=== PATIENT | female | born 1955 | race Caucasian/White ===

== ENCOUNTER → 2017-05-16 | Outpatient (CLI) | payer BC ==
[2014-08-22 09:31] VITALS: BP 127/69
--- NOTE | 2017-05-16 09:55 | MRI ---
HISTORY: Garcia's neuroma. Study: MRI left foot without contrast. Comparison: None available. Technique: Multiplanar/multi sequence imaging of the left foot without contrast. Findings: No obvious lesion to suggest a Garcia's neuroma. The visualized muscles, tendons, and neurovascular structures appear normal. No acute cortical disruption or dislocation can be identified. No signifi cant soft tissue swelling or injury can be seen. IMPRESSION: No MRI findings to suggest a Garcia's neuroma. Reported By:
== END ==
LOC: RAD 08:41
PROVIDERS: ATTEND Specialist
DX: G57.62 Lesion of plantar nerve, left lower limb (principal)
CPT/HCPCS: 73721

== ENCOUNTER → 2017-05-20 | Outpatient (CLI) | payer BC ==
[2014-08-22 09:31] VITALS: BP 127/69
[2017-05-20 15:10] LABS: BASOPHILS % (AUTO) 0.8 % (0.2-1.0); EOSINOPHILS # (AUTO) 0.2 x10^3/uL (0.0-0.2); EOSINOPHILS % (AUTO) 5.8 % (0.9-2.9); HEMATOCRIT 41.1 % (36.0-47.0); HEMOGLOBIN 14.2 g/dL (12.0-16.0); LYMPHOCYTES # (AUTO) 1.1 X10^3/uL (1.3-2.9); LYMPHOCYTES % (AUTO) 25.1 % (21.0-51.0); MEAN CORPUSCULAR HGB CONC 34.7 g/dL (33.0-35.0); MEAN CORPUSCULAR VOLUME 92.4 fL (80.0-100.0); MEAN PLATELET VOLUME 8.2 fL (7.4-11.0); MONOCYTES # (AUTO) 0.3 x10^3/uL (0.3-0.8); MONOCYTES % (AUTO) 7.6 % (0.0-13.0); NEUTROPHILS # (AUTO) 2.6 x10^3/uL (2.2-4.8); NEUTROPHILS % (AUTO) 60.7 % (42.0-75.0); PLATELET COUNT 240 X10^3/uL (150.0-450.0); RED BLOOD COUNT 4.45 X10^6/uL (3.5-5.4); WHITE BLOOD COUNT 4.3 X10^3/uL (3.6-10.0)
[2017-05-20 15:26] LABS: ALANINE AMINOTRANSFERASE 30 Units/L (12-78); ALBUMIN 3.8 g/dL (3.4-5.0); ALKALINE PHOSPHATASE 57 Units/L (46-116); ASPARTATE AMINO TRANSFERASE 24 Units/L (15-37); BLOOD UREA NITROGEN 23 mg/dL (7-18); CALCIUM 8.7 mg/dL (8.5-10.1); CARBON DIOXIDE 27.7 mmol/L (21-32); CHLORIDE 102 mmol/L (98-107); CREATININE 0.82 mg/dL (0.55-1.02); GLUCOSE 90 mg/dL (65-99); SODIUM 138 mmol/L (136-145); TOTAL PROTEIN 7.4 g/dL (6.4-8.2); eGFR BLACK RACES > 60 (>60); eGFR NON BLACK RACES > 60 (>60)
[2017-05-20 16:26] LABS: ERYTHROCYTE SEDIMENTATION RATE 2 MM/HOUR (0-20)
== END ==
LOC: LAB 14:42
PROVIDERS: ATTEND Nurse Practitioner Family
DX: Z79.899 Other long term (current) drug therapy (principal); M06.09 Rheumatoid arthritis without rheumatoid factor, multiple sites
CPT/HCPCS: 36415; 80053; 85025; 85652; 86140

== ENCOUNTER → 2017-06-03 | Outpatient (CLI) | payer BC ==
[2014-08-22 09:31] VITALS: BP 127/69
--- NOTE | 2017-06-06 08:42 | MRI ---
HISTORY: Back pain, left sciatica Study: MRI lumbar spine without contrast Comparison: None Technique: Multiplanar multi-sequence MRI of the lumbar spine was obtained. Sagittal T1, sagittal T 2, and stir weighted images, axial T1, and axial T2 images were obtained. Findings: There is mild retrolisthesis L5 on S1 . The lumbar spine demonstrates otherwise normal alignment wit h the expected signal characteristics of the bone marrow. With the exception of mild degenerative en dplate changes at L4-5. The conus of the cord terminates normally. T12 -- L1: No evidence for compressive disc disease. The neural foramina are patent. The joints are normal. L1 -- L2: No evidence for compressive disc disease. The neural foramina are patent. The joints are n ormal. L2 -- L3: No evidence for compressive disc disease. The neural foramina are patent. Bilateral facet arthropathy is present. L3 -- L4: Mild circumferential disk bulging effaces the thecal sac and contributes along with ligame ntous hypertrophy, facet arthropathy, and pedicular shortening to a moderate spinal stenosis with mo derate lateral recess and foraminal narrowing bilaterally. L4 -- L5: Diffuse concentric disk bulging effaces the thecal sac and contributes along with pedicula r shortening to mild lateral recess and foraminal narrowing bilaterally more prominent on the right than the left. L5 -- S1: There is disc degeneration with slight retrolisthesis L5 on S1. The retrolisthesis and bro ad-based disc bulging contribute to significant lateral recess and foraminal narrowing bilaterally. IMPRESSION: As above Reported By:
== END | disposition home or self-care (01) | DRG 552 ==
LOC: RAD 08:39
PROVIDERS: ATTEND Specialist
DX: M53.86 Other specified dorsopathies, lumbar region (principal); M54.32 Sciatica, left side
CPT/HCPCS: 72148

== ENCOUNTER → 2017-09-29 | Outpatient (CLI) | payer BC ==
[2014-08-22 09:31] VITALS: BP 127/69
[2017-09-29 08:46] LABS: EOSINOPHILS # (AUTO) 0.3 x10^3/uL (0.0-0.2); EOSINOPHILS % (AUTO) 6.2 % (0.9-2.9); HEMATOCRIT 43.9 % (36.0-47.0); LYMPHOCYTES % (AUTO) 22.3 % (21.0-51.0); MEAN CORPUSCULAR HEMOGLOBIN 31.5 pg (27.0-34.0); MEAN CORPUSCULAR HGB CONC 34.1 g/dL (33.0-35.0); MEAN CORPUSCULAR VOLUME 92.3 fL (80.0-100.0); MEAN PLATELET VOLUME 8.1 fL (7.4-11.0); MONOCYTES # (AUTO) 0.4 x10^3/uL (0.3-0.8); MONOCYTES % (AUTO) 9.1 % (0.0-13.0); NEUTROPHILS # (AUTO) 2.7 x10^3/uL (2.2-4.8); NEUTROPHILS % (AUTO) 61.4 % (42.0-75.0); PLATELET COUNT 277 X10^3/uL (150.0-450.0); RED BLOOD COUNT 4.75 X10^6/uL (3.5-5.4); RED CELL DISTRIBUTION WIDTH 15.1 % (11.6-16.5); WHITE BLOOD COUNT 4.3 X10^3/uL (3.6-10.0)
[2017-09-29 09:08] LABS: ALANINE AMINOTRANSFERASE 29 Units/L (12-78); ALBUMIN 3.8 g/dL (3.4-5.0); ALKALINE PHOSPHATASE 75 Units/L (46-116); ASPARTATE AMINO TRANSFERASE 20 Units/L (15-37); BLOOD UREA NITROGEN 19 mg/dL (7-18); CALCIUM 9.1 mg/dL (8.5-10.1); CARBON DIOXIDE 29.6 mmol/L (21-32); CHLORIDE 104 mmol/L (98-107); CREATININE 1.05 mg/dL (0.55-1.02); SODIUM 141 mmol/L (136-145); TOTAL PROTEIN 7.6 g/dL (6.4-8.2); eGFR BLACK RACES > 60 (>60); eGFR NON BLACK RACES 57 (>60)
[2017-09-29 09:39] LABS: ERYTHROCYTE SEDIMENTATION RATE 2 MM/HOUR (0-20)
== END ==
LOC: LAB 07:42
PROVIDERS: ATTEND Internal Medicine Rheumatology
DX: Z79.899 Other long term (current) drug therapy (principal); M06.09 Rheumatoid arthritis without rheumatoid factor, multiple sites
CPT/HCPCS: 36415; 80053; 85025; 85652

== ENCOUNTER → 2018-01-12 | Outpatient (CLI) | payer BC ==
[2017-11-18 11:03] VITALS: BP 138/67
[2018-01-12 08:32] LABS: BASOPHILS # (AUTO) 0.1 X10^3/uL (0.0-0.1); BASOPHILS % (AUTO) 1.2 % (0.2-1.0); EOSINOPHILS # (AUTO) 0.4 x10^3/uL (0.0-0.2); EOSINOPHILS % (AUTO) 8.3 % (0.9-2.9); HEMATOCRIT 42.9 % (36.0-47.0); HEMOGLOBIN 14.8 g/dL (12.0-16.0); LYMPHOCYTES # (AUTO) 1.7 X10^3/uL (1.3-2.9); LYMPHOCYTES % (AUTO) 36.7 % (21.0-51.0); MEAN CORPUSCULAR HEMOGLOBIN 31.8 pg (27.0-34.0); MEAN CORPUSCULAR HGB CONC 34.4 g/dL (33.0-35.0); MEAN CORPUSCULAR VOLUME 92.2 fL (80.0-100.0); MEAN PLATELET VOLUME 7.7 fL (7.4-11.0); MONOCYTES # (AUTO) 0.5 x10^3/uL (0.3-0.8); NEUTROPHILS # (AUTO) 2.1 x10^3/uL (2.2-4.8); NEUTROPHILS % (AUTO) 43.8 % (42.0-75.0); PLATELET COUNT 277 X10^3/uL (150.0-450.0); RED BLOOD COUNT 4.65 X10^6/uL (3.5-5.4); RED CELL DISTRIBUTION WIDTH 13.5 % (11.6-16.5); WHITE BLOOD COUNT 4.7 X10^3/uL (3.6-10.0)
[2018-01-12 08:38] LABS: ALANINE AMINOTRANSFERASE 23 Units/L (12-78); ALBUMIN 3.5 g/dL (3.4-5.0); ALKALINE PHOSPHATASE 74 Units/L (46-116); ASPARTATE AMINO TRANSFERASE 15 Units/L (15-37); BLOOD UREA NITROGEN 14 mg/dL (7-18); CALCIUM 8.7 mg/dL (8.5-10.1); CARBON DIOXIDE 27.6 mmol/L (21-32); CHLORIDE 107 mmol/L (98-107); CREATININE 0.89 mg/dL (0.55-1.02); SODIUM 140 mmol/L (136-145); TOTAL PROTEIN 7.1 g/dL (6.4-8.2); eGFR BLACK RACES > 60 (>60); eGFR NON BLACK RACES > 60 (>60)
[2018-01-12 09:04] LABS: ERYTHROCYTE SEDIMENTATION RATE 2 MM/HOUR (0-20)
== END ==
LOC: SURG1 07:45
PROVIDERS: ATTEND Internal Medicine Rheumatology
DX: Z79.899 Other long term (current) drug therapy (principal); M06.09 Rheumatoid arthritis without rheumatoid factor, multiple sites
CPT/HCPCS: 36415; 80053; 85025; 85652; 86140

== ENCOUNTER 2023-03-17 09:52 | Inpatient (IN) ==
[2023-03-17 11:35] VITALS: BMI 32.4
[2023-03-17] MEDS ORDERED: PROVENTIL NEB TX 0.083% 2.5MG/ 3ML NEB SCH (11:37)
[2023-03-17] MEDS ORDERED: Atrovent NEB TX 0.02% NEB SCH (11:37)
[2023-03-17] MEDS ORDERED: NS 1/2 1,000 ML IV 1,000 ML IV ONE (11:52)
[2023-03-17] MEDS: LEVAQUIN PREMIX IV 750 MG 750 MG/150 ML BAG IV SCH (11:54)
[2023-03-17] MEDS: NS 1/2 1,000 ML IV 1,000 ML IV SCH (11:55)
[2023-03-17] MEDS: SOLU-Medrol 40 MG VIAL IVP SCH ×2 (11:55→21:46)
[2023-03-17] MEDS: ROBITUSSIN DM PO SCH ×4 (11:55→21:46)
[2023-03-17 12:23] LABS: BASOPHILS % (AUTO) 0.2 % (0.2-1.0); EOSINOPHILS # (AUTO) 0.1 x10^3/uL (0.0-0.2); EOSINOPHILS % (AUTO) 0.7 % (0.9-2.9); HEMATOCRIT 35.4 % (36.0-47.0); HEMOGLOBIN 12.2 g/dL (12.0-16.0); LYMPHOCYTES # (AUTO) 0.6 X10^3/uL (1.3-2.9); LYMPHOCYTES % (AUTO) 5.4 % (21.0-51.0); MEAN CORPUSCULAR HEMOGLOBIN 31.8 pg (27.0-34.0); MEAN CORPUSCULAR HGB CONC 34.5 g/dL (33.0-35.0); MEAN PLATELET VOLUME 7.4 fL (7.4-11.0); MONOCYTES # (AUTO) 0.8 x10^3/uL (0.3-0.8); MONOCYTES % (AUTO) 7.8 % (0.0-13.0); NEUTROPHILS # (AUTO) 9.1 x10^3/uL (2.2-4.8); NEUTROPHILS % (AUTO) 85.9 % (42.0-75.0); PLATELET COUNT 394 X10^3/uL (150.0-450.0); RED BLOOD COUNT 3.85 X10^6/uL (3.5-5.4); RED CELL DISTRIBUTION WIDTH 14.3 % (11.6-16.5); WHITE BLOOD COUNT 10.5 X10^3/uL (3.6-10.0)
[2023-03-17 12:32] LABS: ALANINE AMINOTRANSFERASE 33 Units/L (12-78); ALBUMIN 3.3 g/dL (3.4-5.0); ALKALINE PHOSPHATASE 74 Units/L (46-116); ASPARTATE AMINO TRANSFERASE 29 Units/L (15-37); BLOOD UREA NITROGEN 10 mg/dL (7-18); CALCIUM 9.4 mg/dL (8.5-10.1); CARBON DIOXIDE 32.9 mmol/L (21-32); CHLORIDE 98 mmol/L (98-107); COR NA(FOR HYPERGLY) 137 mmol/L (136-145); CREATININE 0.93 mg/dL (0.55-1.02); GLUCOSE 111 mg/dL (65-99); SODIUM 137 mmol/L (136-145); TOTAL PROTEIN 7.7 g/dL (6.4-8.2); eGFR NON BLACK RACES > 60 (>60)
[2023-03-17 12:37] LABS: POTASSIUM 2.7 mmol/L (3.5-5.1)
[2023-03-17] MEDS: ZOFRAN INJ 4 MG VIAL IVP PRN (13:15)
[2023-03-17] MEDS ORDERED: POTASSIUM CHL 40 MEQ/NS 0.45% 500 ML IV PRN (13:42)
[2023-03-17] MEDS ORDERED: MICRO K EXTEN CAP 10 MEQ PO PRN (13:42)
[2023-03-17] MEDS ORDERED: K-RIDER 10 MEQ/NS 100 ML 10 MEQ/100 ML BAG IV PRN (13:42)
[2023-03-17] MEDS ORDERED: POTASSIUM CHLORIDE LIQ 20 MEQ UDC PO PRN (13:42)
[2023-03-17] MEDS ORDERED: KLOR-CON PO PRN (13:42)
[2023-03-17] MEDS ORDERED: POTASSIUM CHL 60 MEQ/NS 0.45% 500 ML IV PRN (13:42)
[2023-03-17] MEDS: K-DUR TAB 20 MEQ PO PRN ×2 (14:06→18:15)
[2023-03-17] MEDS: LOVENOX INJ 40 MG SYR SC SCH (14:09)
[2023-03-17] MEDS ORDERED: DUONEB 0.5 MG/3 MG (3 mL) NEB ONE (16:13)
[2023-03-17] MEDS: DUONEB 0.5 MG/3 MG (3 mL) NEB SCH ×2 (16:39→18:28)
[2023-03-17] MEDS: MAGNESIUM SULFATE 1 GRAM/100 mL PREMIX 1 G/100 ML BAG IV PRN ×2 (18:15→21:52)
[2023-03-17] MEDS ORDERED: PULMICORT NEB TX 0.5 MG NEB ONE (19:59)
[2023-03-17] MEDS: PULMICORT NEB TX 0.5 MG NEB SCH (20:48)
[2023-03-18] MEDS: TUSSIONEX PENNKINETIC SUSP PO PRN (02:26)
[2023-03-18] MEDS: DUONEB 0.5 MG/3 MG (3 mL) NEB SCH ×4 (05:35→17:01)
[2023-03-18 06:08] LABS: BASOPHILS % (AUTO) 0.1 % (0.2-1.0); HEMATOCRIT 32.4 % (36.0-47.0); HEMOGLOBIN 11.3 g/dL (12.0-16.0); LYMPHOCYTES # (AUTO) 0.4 X10^3/uL (1.3-2.9); LYMPHOCYTES % (AUTO) 4.5 % (21.0-51.0); MEAN CORPUSCULAR HEMOGLOBIN 32.2 pg (27.0-34.0); MEAN PLATELET VOLUME 7.4 fL (7.4-11.0); MONOCYTES # (AUTO) 0.4 x10^3/uL (0.3-0.8); MONOCYTES % (AUTO) 3.9 % (0.0-13.0); NEUTROPHILS # (AUTO) 8.4 x10^3/uL (2.2-4.8); NEUTROPHILS % (AUTO) 91.5 % (42.0-75.0); PLATELET COUNT 414 X10^3/uL (150.0-450.0); RED BLOOD COUNT 3.52 X10^6/uL (3.5-5.4); RED CELL DISTRIBUTION WIDTH 14.2 % (11.6-16.5); WHITE BLOOD COUNT 9.1 X10^3/uL (3.6-10.0)
[2023-03-18 06:23] LABS: ALANINE AMINOTRANSFERASE 26 Units/L (12-78); ALBUMIN 2.7 g/dL (3.4-5.0); ALKALINE PHOSPHATASE 64 Units/L (46-116); ASPARTATE AMINO TRANSFERASE 16 Units/L (15-37); BLOOD UREA NITROGEN 9 mg/dL (7-18); CALCIUM 8.5 mg/dL (8.5-10.1); CARBON DIOXIDE 29.9 mmol/L (21-32); CHLORIDE 101 mmol/L (98-107); COR CA(FOR HYPOALB) 9.5 mg/dL (8.5-10.1); COR NA(FOR HYPERGLY) 138 mmol/L (136-145); GLUCOSE 157 mg/dL (65-99); MAGNESIUM 2.6 mg/dL (2.0-2.9); POTASSIUM 3.6 mmol/L (3.5-5.1); SODIUM 137 mmol/L (136-145); eGFR NON BLACK RACES > 60 (>60)
[2023-03-18] MEDS: K-DUR TAB 20 MEQ PO PRN ×4 (06:34→22:18)
[2023-03-18] MEDS: NS 1/2 1,000 ML IV 1,000 ML IV SCH ×2 (06:34→14:37)
[2023-03-18] MEDS ORDERED: NS 1/2 1,000 ML IV 1,000 ML IV ONE ×2 (06:36→12:42)
--- NOTE | 2023-03-18 06:44 | RAD ---
HISTORYPneumoniaSTUDYChest AP portableCOMPARISONNoneFINDINGSHeart size is normal. Heather are normal. Abnormal parenchymal density is present in the right upper lobe suggestive of pneumonia. Follow-up until complete resolution is recommended. Remainder of the lung martinez are clear. No pleural effusions are identified. Bony thorax is unremarkable.IMPRESSIONRight upper lobe infiltrates suggestive of pneumonia. Follow-up until complete resolution is recommended.Electronically signed by: CARYN PONCE (Mar 18, 2023 06:43:18)
[2023-03-18 07:03] LABS: BAND NEUTROPHILS % 2 % (0-10); PLATELET MORPHOLOGY COMMENT NORMAL (NORMAL)
--- NOTE | 2023-03-18 07:40 | RAD ---
HISTORYFollow-up pneumoniaSTUDYChest AP [id number]/27/2023FINDINGSHear t is upper limits normal in size. No congestive heart failure is noted. Heather are normal. Right upper lobe infiltrate is slightly increased when compared to the prior examination and most consistent with slightly worsening pneumonia. Remainder of the lung martinez are clear. No pleural effusions are identified. Bony thorax is unremarkable.IMPRESSIONSlight increase right upper lobe infiltrate consistent with slightly worsening pneumoniaElectronically signed by: CARYN PONCE (Mar 18, 2023 07:39:43)
[2023-03-18] MEDS: PULMICORT NEB TX 0.5 MG NEB SCH ×2 (08:49→20:15)
[2023-03-18] MEDS: LOVENOX INJ 40 MG SYR SC SCH (09:07)
[2023-03-18] MEDS: DIOVAN TAB 160 MG PO SCH (09:08)
[2023-03-18] MEDS: HYDROCHLOROTHIAZIDE 25 MG TAB PO SCH (09:08)
[2023-03-18] MEDS: PROTONIX TAB 40 MG PO SCH (09:08)
[2023-03-18] MEDS: SOLU-Medrol 40 MG VIAL IVP SCH ×2 (09:09→21:09)
[2023-03-18] MEDS: LEVAQUIN PREMIX IV 750 MG 750 MG/150 ML BAG IV SCH (09:09)
[2023-03-18] MEDS: FOLIC ACID TAB 1 MG PO SCH (09:09)
[2023-03-18] MEDS: ROBITUSSIN DM PO SCH ×4 (09:09→21:09)
[2023-03-18] MEDS: TOFACITINIB 11 MG PO SCH (09:10)
[2023-03-18] MEDS ORDERED: FORTAZ or TAZICEF VIAL INJ IVP SCH (10:00)
[2023-03-18] MEDS ORDERED: NS 100 ML IV 100 ML ONE (10:03)
[2023-03-18] MEDS: FORTAZ or TAZICEF VIAL INJ 1 G in NS 100 ML IV 100 ML IV SCH ×3 (10:24→21:08)
--- NOTE | 2023-03-18 11:44 | DR.H&P ---
H&P - History & Physical for Day of: H&P Date: 03/17/23 - Chief Complaint Chief Complaint: COUGH, SHORTNESS OF BREATH - History of Present Illness History of Present Illness: IS A 67 YEAR OLD PATIENT OF OURS. SHE WAS A DIRECT ADMISSION FOR TREATMENT OF PNEUMONIA, FAILED OUTPATIENT TREATMENT. HER SYMPTOMS OF PRODUCTIVE COUGH AND SHORTNESS OF BREATH STARTED ON 03/10/23. SHE HAS TAKEN AUGMENTIN 875-125 BID, MUCINEX, A MEDROL DOSEPACK, AND HAS HAD ROCEPHIN INJECTIONS. SHE DENIES IMPROVEMENT IN SYMPTOMS DESPITE COMPLIANCE WITH MEDICATIONS. ON ADMISSION, HER VITALS WERE 99.9-90-20-97%-157/74. LABS WERE OBTAINED. WBC 10.5, RBC 3.85, HGB 12.2, HCT 35.4, PLT COUNT 394, SODIUM 137, POTASSIUM 2.7, CHLORIDE 98, CARBON DIOXIDE 32.9, BUN 10, CREATININE 0.93, GLUCOSE 111, CALCIUM 9.4, MAGNESIUM 1.9, AST 29, ALT 33, ALK PHOS 74, TOTAL PROTEIN 7.7, ALBUMIN 3.3. A RESPIRATORY VIRAL PANEL WAS SET UP. BLOOD AND SPUTUM CULTURES WERE SET UP. A CHEST XRAY WAS OBTAINED AND REVEALED: Heart size is normal. Heather are normal. Abnormal parenchymal density is present in the right upper lobe suggestive of pneumonia. Follow-up until complete resolution is recommended. Remainder of the lung martinez are clear. No pleural effusions are identified. Bony thorax is unremarkable. SHE WAS STARTED ON 1/2NS AT 75 ML/HR, LEVAQUIN 750MG DAILY, FORTAZ 1G IV Q8H, PULMICORT NEBS BID, DUONEBS Q6H, MUCOMYST NEBS Q6H, LOVENOX 40MG SC DAILY, TUSSIONEX 5ML Q12H PRN, ROBITUSSIN DM 10ML QID, ZOFRAN 4MG IV Q6H PRN, SOLU-MEDROL 60MG IV BID, AND THE POTASSIUM AND MAGNESIUM PROTOCOLS. WE WILL RESUME HER HOME MEDICATIONS OF VALSARTAN, PANTOPRAZOLE, FOLIC ACID, AND HCTZ. OTHERWISE, WE WILL FOLLOW-UP WITH AM LABS AND CHEST XRAY AND CONTINUE TO MONITOR. TIME SPENT ON CLINICAL ASSESSMENT, REVIWING LABS AND IMAGING, DECISION MAKING, AND DOCUMENTATION GREATER THAN 45 MINUTES. - Past Medical History Past Medical History: Arthritis, Hypertension - Past Surgical History Surgical History: Cholecystectomy, Hysterectomy - Family History Family Medical History: Diabetes Mellitus, Hypertension - Social History Does patient currently use any type of tobacco product: No Have you used tobacco products in the last 12 months: No Type of Tobacco Use: None Alcohol Use: None Drug Use: None - Medications Home Medications: No Known Drug Allergies Allergy (Unknown, Unverified 08/09/22 10:59) CONTINUE taking the following medications amoxicillin 875 mg-potassium clavulanate 125 mg tablet 1 tab PO BID 03/17/23 [History] folic acid 1 mg tablet 1 tab PO QDAY 03/17/23 [History] methylprednisolone 4 mg tablets in a dose pack (Methylpred DP) 4 mg PO DIRECTED 03/17/23 [History] pantoprazole 40 mg tablet,delayed release 40 mg PO QDAY 03/17/23 [History] tofacitinib 11 mg tablet,extended release 24 hr (Xeljanz XR) 11 mg PO DAILY 03/17/23 [History] valsartan 320 mg tablet 320 mg PO QDAY 03/17/23 [History] - Review of Systems Constitutional: No Symptoms Reported Eyes: No Symptoms Reported ENT: No Symptoms Reported Respiratory: Cough, SOB with Excertion Cardiovascular: No Symptoms Reported Gastrointestinal: No Symptoms Reported Genitourinary: No Symptoms Reported Musculoskeletal: No Symptoms Reported Skin: No Symptoms Reported Neurological: Weakness - Physical Exam Vital Signs: Temperature 98.3 F Pulse Rate [Left Radial] 79 Pulse Rate 73 Respiratory Rate 20 Blood Pressure [Right Arm] 134/65 Blood Pressure 130/68 O2 Sat by Pulse Oximetry 93 Oriented: Normal Eyes: Normal Ear: Normal Nose: Normal Throat: Normal Respiratory: Rhonchi Throughout, Wheezes Throughout Cardiovascular: Normal : Normal Auscultation: Bowel Sounds: Normal Palpation: Normal Tenderness: Normal Skin: Normal Musculoskeletal: Normal Psychiatric: Normal Mood Description: Calm Affect: Normal Speech Pattern: Clear - Assessment/Plan (1) Pneumonia Qualifiers: Pneumonia type: due to unspecified organism Laterality: right Lung location: upper lobe of lung Qualified Code(s): J18.9 - Pneumonia, unspecified organism Status: Acute Plan: ADMIT, 1/2NS AT 75 ML/HR, LEVAQUIN 750MG DAILY, FORTAZ 1G IV Q8H, PULMICORT NEBS BID, DUONEBS Q6H, MUCOMYST NEBS Q6H, LOVENOX 40MG SC DAILY, TUSSIONEX 5ML Q12H PRN, ROBITUSSIN DM 10ML QID, ZOFRAN 4MG IV Q6H PRN, SOLU- MEDROL 60MG IV BID, AND THE POTASSIUM AND MAGNESIUM PROTOCOLS. RESUME HOME MEDS (2) HTN (hypertension) Qualifiers: Hypertension type: primary hypertension Qualified Code(s): I10 - Essential (primary) hypertension Status: Chronic (3) GERD (gastroesophageal reflux disease) Qualifiers: Esophagitis presence: esophagitis presence not specified Qualified Code(s): K21.9 - Gastro-esophageal reflux disease without esophagitis Status: Chronic - Allergies Allergies/Adverse Reactions: Allergies Allergy/AdvReac Type Severity Reaction Status Date / Time No Known Drug Allergies Allergy Unknown Unverified 08/09/22 10:59
[2023-03-18] MEDS: MUCOMYST (RESPIRATORY USE ONLY) NEB SCH ×2 (13:07→17:02)
[2023-03-19] MEDS: DUONEB 0.5 MG/3 MG (3 mL) NEB SCH ×4 (00:11→17:07)
[2023-03-19] MEDS: MUCOMYST (RESPIRATORY USE ONLY) NEB SCH ×4 (00:11→17:07)
[2023-03-19] MEDS: TUSSIONEX PENNKINETIC SUSP PO PRN (01:05)
--- NOTE | 2023-03-19 06:03 | RAD ---
HISTORYSOBSTUDYCHEST, 1 VIEWCOMPARISONApril 2022TECHNIQUEPortable chest radiographFINDINGSStable patchy infiltrates primarily affecting the right upper lobe. Left lung remains predominantly clear. No accumulating pleural fluid collections, free air or pneumothorax. Stable size and morphology of the cardiac silhouette.IMPRESSIONUnresolved patchy infiltrates compatible with pneumonia primarily affecting the right upper lobe.Electronically signed by: BEBETO MO (Mar 19, 2023 06:02:16)
[2023-03-19] MEDS: FORTAZ or TAZICEF VIAL INJ 1 G in NS 100 ML IV 100 ML IV SCH ×3 (06:13→21:19)
[2023-03-19 06:15] LABS: BASOPHILS % (AUTO) 0.1 % (0.2-1.0); HEMATOCRIT 34.1 % (36.0-47.0); HEMOGLOBIN 11.6 g/dL (12.0-16.0); LYMPHOCYTES # (AUTO) 0.5 X10^3/uL (1.3-2.9); LYMPHOCYTES % (AUTO) 4.8 % (21.0-51.0); MEAN CORPUSCULAR HEMOGLOBIN 31.4 pg (27.0-34.0); MEAN CORPUSCULAR HGB CONC 33.9 g/dL (33.0-35.0); MEAN CORPUSCULAR VOLUME 92.5 fL (80.0-100.0); MEAN PLATELET VOLUME 7.5 fL (7.4-11.0); MONOCYTES # (AUTO) 0.8 x10^3/uL (0.3-0.8); NEUTROPHILS # (AUTO) 10.1 x10^3/uL (2.2-4.8); NEUTROPHILS % (AUTO) 88.1 % (42.0-75.0); PLATELET COUNT 415 X10^3/uL (150.0-450.0); RED BLOOD COUNT 3.69 X10^6/uL (3.5-5.4); RED CELL DISTRIBUTION WIDTH 14.5 % (11.6-16.5); WHITE BLOOD COUNT 11.5 X10^3/uL (3.6-10.0)
[2023-03-19] MEDS: NS 1/2 1,000 ML IV 1,000 ML IV SCH ×2 (06:15→17:07)
[2023-03-19 06:38] LABS: ALANINE AMINOTRANSFERASE 24 Units/L (12-78); ALBUMIN 2.7 g/dL (3.4-5.0); ALKALINE PHOSPHATASE 72 Units/L (46-116); ASPARTATE AMINO TRANSFERASE 16 Units/L (15-37); BLOOD UREA NITROGEN 12 mg/dL (7-18); CALCIUM 8.7 mg/dL (8.5-10.1); CARBON DIOXIDE 30.2 mmol/L (21-32); CHLORIDE 103 mmol/L (98-107); COR CA(FOR HYPOALB) 9.7 mg/dL (8.5-10.1); COR NA(FOR HYPERGLY) 140 mmol/L (136-145); CREATININE 0.73 mg/dL (0.55-1.02); GLUCOSE 141 mg/dL (65-99); MAGNESIUM 2.4 mg/dL (2.0-2.9); POTASSIUM 3.9 mmol/L (3.5-5.1); SODIUM 139 mmol/L (136-145); TOTAL PROTEIN 6.7 g/dL (6.4-8.2); eGFR NON BLACK RACES > 60 (>60)
[2023-03-19] MEDS: PULMICORT NEB TX 0.5 MG NEB SCH ×2 (08:16→21:24)
[2023-03-19] MEDS: LEVAQUIN PREMIX IV 750 MG 750 MG/150 ML BAG IV SCH (08:54)
[2023-03-19] MEDS: LOVENOX INJ 40 MG SYR SC SCH (08:54)
[2023-03-19] MEDS: SOLU-Medrol 40 MG VIAL IVP SCH (08:54)
[2023-03-19] MEDS: ROBITUSSIN DM PO SCH ×4 (08:55→21:19)
[2023-03-19] MEDS: PROTONIX TAB 40 MG PO SCH (08:55)
[2023-03-19] MEDS: FOLIC ACID TAB 1 MG PO SCH (08:55)
[2023-03-19] MEDS: HYDROCHLOROTHIAZIDE 25 MG TAB PO SCH (08:55)
[2023-03-19] MEDS: DIOVAN TAB 160 MG PO SCH (08:55)
[2023-03-19] MEDS: TOFACITINIB 11 MG PO SCH ×2 (09:08→10:55)
--- NOTE | 2023-03-19 11:48 | PCM.PROG ---
Progress Note Progress Note for Day of Date of Exam: 03/19/23 Subjective Subjective: PT IS A 67 YEAR OLD PATIENT ADMITTED FOR PNEUMONIA AFTER FAILING OUTPATIENT TREATMENT. THIS MORNING SHE REPORTS SOME IMPROVEMENT IN HER SYMPTOMS. NO ACUTE EVENTS OVERNIGHT. LABS/IMAGING WERE OBTAINED. WBC 11.5, HGB 11.6, PLT 415, NA 139, 3.9, CREATININE 0.73, GLUCOSE 141. A RESPIRATORY VIRAL PANEL NEGATIVE. BLOOD AND SPUTUM CULTURES PENDING. A CHEST XRAY WAS OBTAINED AND REVEALED: Unresolved patchy infiltrates compatible with pneumonia primarily affecting the right upper lobe. SHE IS CURRENTLY RECEIVING IVF 1/2NS AT 75 ML/HR, LEVAQUIN 750MG DAILY, FORTAZ 1G IV Q8H, PULMICORT NEBS BID, DUONEBS Q6H, MUCOMYST NEBS Q6H, LOVENOX 40MG SC DAILY, TUSSIONEX 5ML Q12H PRN, ROBITUSSIN DM 10ML QID, ZOFRAN 4MG IV Q6H PRN, SOLU-MEDROL 60MG IV BID, AND THE POTASSIUM AND MAGNESIUM PROTOCOLS. HER HOME MEDICATIONS OF VALSARTAN, PANTOPRAZOLE, FOLIC ACID, AND HCTZ. OTHERWISE, WILL CONTINUE WITH CURRENT TREATMENT PLAN. FOLLOW-UP WITH AM LABS AND CHEST XRAY AND CONTINUE TO MONITOR. Past Medical Family Social History Allergies: Allergies No Known Drug Allergies Allergy (Unknown, Unverified 08/09/22 10:59) Onset Date: 08/09/2022 Review of Systems ROS: No change since H&P Vital Signs and I&O's Vital Signs: Temperature 97.8 F Pulse Rate [Left Radial] 74 Pulse Rate 80 Respiratory Rate 18 Blood Pressure [Right Arm] 141/63 Blood Pressure 130/68 O2 Sat by Pulse Oximetry 93 Intake and Output: Intake & Output 03/16/23 03/17/23 03/18/23 03/19/23 23:59 23:59 23:59 23:59 Intake Total 565 / 565 2874 / 2874 0 / 0 Balance 565 / 565 2874 / 2874 0 / 0 Physical Exam Oriented: Normal Eyes: Normal Ear: Normal Nose: Normal Throat: Normal Respiratory: Rhonchi Cardiovascular: Normal : Normal Auscultation: Bowel Sounds: Normal Tenderness: Normal Skin: Normal Musculoskeletal: Normal Psychiatric: Normal Mood Description: Calm Affect: Normal Speech Pattern: Clear and Appropriate Laboratory and Diagnostics Result Diagrams: 03/19/23 05:05 03/19/23 05:05 Labs: 03/17/23 12:08 Blood Blood Culture - Preliminary 03/17/23 11:52 Blood Blood Culture - Preliminary 03/17/23 13:05 Sputum - Expectorated Sputum Sputum Culture - Final 03/17/23 13:05 Sputum - Expectorated Sputum - Final Laboratory WBC 11.5 X10^3/uL (3.6-10.0) H 03/19/23 05:05 RBC 3.69 X10^6/uL (3.5-5.4) 03/19/23 05:05 Hgb 11.6 g/dL (12.0-16.0) L 03/19/23 05:05 Hct 34.1 % (36.0-47.0) L 03/19/23 05:05 MCV 92.5 fL (80.0-100.0) 03/19/23 05:05 MCH 31.4 pg (27.0-34.0) 03/19/23 05:05 MCHC 33.9 g/dL (33.0-35.0) 03/19/23 05:05 RDW 14.5 % (11.6-16.5) 03/19/23 05:05 Plt Count 415 X10^3/uL (150.0-450.0) 03/19/23 05:05 Plt Count Comment Adequate (ADEQUATE) 03/18/23 05:07 MPV 7.5 fL (7.4-11.0) 03/19/23 05:05 Neut % (Auto) 88.1 % (42.0-75.0) H 03/19/23 05:05 Lymph % (Auto) 4.8 % (21.0-51.0) L 03/19/23 05:05 [place] % (Auto) 7.0 % (0.0-13.0) 03/19/23 05:05 Eos % (Auto) 0.0 % (0.9-2.9) L 03/19/23 05:05 Baso % (Auto) 0.1 % (0.2-1.0) L 03/19/23 05:05 Neut # (Auto) 10.1 x10^3/uL (2.2-4.8) H 03/19/23 05:05 Lymph # (Auto) 0.5 X10^3/uL (1.3-2.9) L 03/19/23 05:05 [place] # (Auto) 0.8 x10^3/uL (0.3-0.8) 03/19/23 05:05 Eos # (Auto) 0.0 x10^3/uL (0.0-0.2) 03/19/23 05:05 Baso # (Auto) 0.0 X10^3/uL (0.0-0.1) 03/19/23 05:05 Absolute Nucleated RBC 0.0 /100WBC 03/19/23 05:05 Total Counted 100 03/18/23 05:07 Neutrophils % (Manual) 92 % (39-76) H 03/18/23 05:07 Band Neutrophils % 2 % (0-10) 03/18/23 05:07 Lymphocytes % (Manual) 6 % (13-43) L 03/18/23 05:07 Plt Morphology Comment Normal (NORMAL) 03/18/23 05:07 RBC Morphology Normal (NORMAL) 03/18/23 05:07 Sodium 139 mmol/L (136-145) 03/19/23 05:05 Corrected Sodium 140 mmol/L (136-145) 03/19/23 05:05 Potassium 3.9 mmol/L (3.5-5.1) 03/19/23 05:05 Chloride 103 mmol/L (98-107) 03/19/23 05:05 Carbon Dioxide 30.2 mmol/L (21-32) 03/19/23 05:05 BUN 12 mg/dL (7-18) 03/19/23 05:05 Creatinine 0.73 mg/dL (0.55-1.02) 03/19/23 05:05 Est GFR (MDRD) Af Amer > 60 (>60) 03/19/23 05:05 Est GFR (MDRD) Non-Af > 60 (>60) 03/19/23 05:05 Glucose 141 mg/dL (65-99) H 03/19/23 05:05 Calcium 8.7 mg/dL (8.5-10.1) 03/19/23 05:05 Corrected Calcium 9.7 mg/dL (8.5-10.1) 03/19/23 05:05 Magnesium 2.4 mg/dL (2.0-2.9) 03/19/23 05:05 Total Bilirubin 0.20 mg/dL (0.2-1.0) 03/19/23 05:05 AST 16 Units/L (15-37) 03/19/23 05:05 ALT 24 Units/L (12-78) 03/19/23 05:05 Alkaline Phosphatase 72 Units/L (46-116) 03/19/23 05:05 Total Protein 6.7 g/dL (6.4-8.2) 03/19/23 05:05 Albumin 2.7 g/dL (3.4-5.0) L 03/19/23 05:05 Globulin 4.0 g/dL (2.5-4.5) 03/19/23 05:05 Albumin/Globulin Ratio 0.7 Ratio (1.1-2.1) L 03/19/23 05:05 Resp Viral Panel (PCR) See scanned report 03/17/23 12:15 Plan (1) Pneumonia: Status: Acute Qualifiers: Pneumonia type: due to unspecified organism Laterality: right Lung lo cation: upper lobe of lung Qualified Code(s): J18.9 - Pneumonia, unspecified organism Plan: ADMIT, 1/2NS AT 75 ML/HR, LEVAQUIN 750MG DAILY, FORTAZ 1G IV Q8H, PULMICORT NEBS BID, DUONEBS Q6H, MUCOMYST NEBS Q6H, LOVENOX 40MG SC DAILY, TUSSIONEX 5ML Q12H PRN, ROBITUSSIN DM 10ML QID, ZOFRAN 4MG IV Q6H PRN, SOLU- MEDROL 60MG IV BID, AND THE POTASSIUM AND MAGNESIUM PROTOCOLS. RESUME HOME MEDS (2) HTN (hypertension): Status: Chronic Qualifiers: Hypertension type: primary hypertension Qualified Code(s): I10 - Essential (primary) hypertension (3) GERD (gastroesophageal reflux disease): Status: Chronic Qualifiers: Esophagitis presence: esophagitis presence not specified Qualified Code(s): K21.9 - Gastro-esophageal reflux disease without esophagitis
[2023-03-19] MEDS ORDERED: NS 1/2 1,000 ML IV 1,000 ML IV ONE (17:04)
[2023-03-20] MEDS: MUCOMYST (RESPIRATORY USE ONLY) NEB SCH ×4 (00:09→17:25)
[2023-03-20] MEDS: DUONEB 0.5 MG/3 MG (3 mL) NEB SCH ×4 (00:09→17:25)
[2023-03-20] MEDS ORDERED: NS 1/2 1,000 ML IV 1,000 ML IV ONE ×2 (00:13→21:34)
[2023-03-20] MEDS: NS 1/2 1,000 ML IV 1,000 ML IV SCH ×4 (05:39→23:38)
[2023-03-20] MEDS: FORTAZ or TAZICEF VIAL INJ 1 G in NS 100 ML IV 100 ML IV SCH ×3 (05:39→21:13)
--- NOTE | 2023-03-20 06:05 | RAD ---
HISTORYSOBSTUDYCHEST, 1 VIEWCOMPARISONApril 29TECHNIQUEPortable chestFINDINGSMarginally improved but unresolved patchy right upper lobe predominant infiltrates in keeping with pneumonia. The remainder of the lungs are clear. The heart size is stable. There is no pleural fluid collection.IMPRESSIONMarginally improved but unresolved patchy right upper lobe predominant infiltrates compatible with pneumonia.Electronically signed by: BEBETO MO (Mar 20, 2023 06:04:12)
[2023-03-20 06:31] LABS: BASOPHILS % (AUTO) 0.3 % (0.2-1.0); EOSINOPHILS # (AUTO) 0.1 x10^3/uL (0.0-0.2); EOSINOPHILS % (AUTO) 0.5 % (0.9-2.9); HEMATOCRIT 34.5 % (36.0-47.0); HEMOGLOBIN 11.6 g/dL (12.0-16.0); LYMPHOCYTES # (AUTO) 1.1 X10^3/uL (1.3-2.9); LYMPHOCYTES % (AUTO) 10.2 % (21.0-51.0); MEAN CORPUSCULAR HEMOGLOBIN 31.1 pg (27.0-34.0); MEAN CORPUSCULAR HGB CONC 33.7 g/dL (33.0-35.0); MEAN CORPUSCULAR VOLUME 92.1 fL (80.0-100.0); MEAN PLATELET VOLUME 7.1 fL (7.4-11.0); MONOCYTES # (AUTO) 0.8 x10^3/uL (0.3-0.8); MONOCYTES % (AUTO) 7.2 % (0.0-13.0); NEUTROPHILS # (AUTO) 9.2 x10^3/uL (2.2-4.8); NEUTROPHILS % (AUTO) 81.8 % (42.0-75.0); PLATELET COUNT 472 X10^3/uL (150.0-450.0); RED BLOOD COUNT 3.75 X10^6/uL (3.5-5.4); RED CELL DISTRIBUTION WIDTH 14.7 % (11.6-16.5); WHITE BLOOD COUNT 11.2 X10^3/uL (3.6-10.0)
[2023-03-20 06:36] LABS: ALANINE AMINOTRANSFERASE 23 Units/L (12-78); ALBUMIN 2.5 g/dL (3.4-5.0); ALKALINE PHOSPHATASE 74 Units/L (46-116); ASPARTATE AMINO TRANSFERASE 19 Units/L (15-37); BLOOD UREA NITROGEN 16 mg/dL (7-18); CALCIUM 8.5 mg/dL (8.5-10.1); CARBON DIOXIDE 30.6 mmol/L (21-32); CHLORIDE 102 mmol/L (98-107); COR CA(FOR HYPOALB) 9.7 mg/dL (8.5-10.1); GLUCOSE 99 mg/dL (65-99); POTASSIUM 3.4 mmol/L (3.5-5.1); SODIUM 139 mmol/L (136-145); TOTAL PROTEIN 6.2 g/dL (6.4-8.2); eGFR NON BLACK RACES > 60 (>60)
[2023-03-20 07:06] LABS: BAND NEUTROPHILS % 2 % (0-10)
[2023-03-20 07:07] LABS: METAMYELOCYTES % 2; PLATELET MORPHOLOGY COMMENT NORMAL (NORMAL)
[2023-03-20] MEDS: PULMICORT NEB TX 0.5 MG NEB SCH ×2 (08:21→21:00)
[2023-03-20] MEDS: HYDROCHLOROTHIAZIDE 25 MG TAB PO SCH (09:05)
[2023-03-20] MEDS: ROBITUSSIN DM PO SCH ×4 (09:05→21:13)
[2023-03-20] MEDS: LOVENOX INJ 40 MG SYR SC SCH (09:05)
[2023-03-20] MEDS: LEVAQUIN PREMIX IV 750 MG 750 MG/150 ML BAG IV SCH (09:05)
[2023-03-20] MEDS: TOFACITINIB 11 MG PO SCH (09:06)
[2023-03-20] MEDS: FOLIC ACID TAB 1 MG PO SCH (09:06)
[2023-03-20] MEDS: PROTONIX TAB 40 MG PO SCH (09:06)
[2023-03-20] MEDS: DIOVAN TAB 160 MG PO SCH (09:16)
[2023-03-20] MEDS: K-DUR TAB 20 MEQ PO PRN ×2 (09:46→16:15)
--- NOTE | 2023-03-20 11:05 | PCM.PROG ---
Progress Note Progress Note for Day of Date of Exam: 03/20/23 Subjective Subjective: PT IS A 67 YEAR OLD PATIENT ADMITTED FOR PNEUMONIA AFTER FAILING OUTPATIENT TREATMENT. PT RESTING IN BED THIS MORNING. SHE DOES FEEL SOME IMPROVEMENT IN HER BREATHING AND COUGH. NO ACUTE EVENTS OVERNIGHT. LABS/IMAGING WERE OBTAINED. WBC 11.2, HGB 11.6, PLT 472, NA 139, 3.4, CREATININE 0.80, GLUCOSE 99. A RESPIRATORY VIRAL PANEL NEGATIVE. BLOOD AND SPUTUM CULTURES PENDING. A CHEST XRAY WAS OBTAINED AND REVEALED: Marginally improved but unresolved patchy right upper lobe predominant infiltrates compatible with pneumonia. SHE IS CURRENTLY RECEIVING IVF 1/2NS AT 75 ML/HR, LEVAQUIN 750MG DA JONO, FORTAZ 1G IV Q8H, PULMICORT NEBS BID, DUONEBS Q6H, MUCOMYST NEBS Q6H, LOVENOX 40MG SC DAILY, TUSSIONEX 5ML Q12H PRN, ROBITUSSIN DM 10ML QID, ZOFRAN 4MG IV Q6H PRN, SOLU-MEDROL 60MG IV BID, AND THE POTASSIUM AND MAGNESIUM PROTOCOLS. HER HOME MEDICATIONS OF VALSARTAN, PANTOPRAZOLE, FOLIC ACID, AND HCTZ. WE WILL CONTINUE WITH THE CURRENT TREATMENT PLAN. FOLLOW-UP WITH AM LABS AND CHEST XRAY AND CONTINUE TO MONITOR. Past Medical Family Social History Allergies: Allergies No Known Drug Allergies Allergy (Unknown, Unverified 08/09/22 10:59) Onset Date: 08/09/2022 Review of Systems ROS changes noted: SEE HPI Vital Signs and I&O's Vital Signs: Temperature 97.8 F Pulse Rate [Left Radial] 78 Pulse Rate 71 Respiratory Rate 20 Blood Pressure [Right Arm] 156/90 Blood Pressure 130/68 O2 Sat by Pulse Oximetry 97 Intake and Output: Intake & Output 03/17/23 03/18/23 03/19/23 03/20/23 23:59 23:59 23:59 23:59 Intake Total 565 / 565 2874 / 2874 1634 / 1634 100 / 100 Balance 565 / 565 2874 / 2874 1634 / 1634 100 / 100 Physical Exam Oriented: Normal Eyes: Normal Ear: Normal Nose: Normal Throat: Normal Respiratory: Rhonchi Cardiovascular: Normal : Normal Auscultation: Bowel Sounds: Normal Tenderness: Normal Skin: Normal Musculoskeletal: Normal Psychiatric: Normal Mood Description: Calm Affect: Normal Speech Pattern: Clear and Appropriate Laboratory and Diagnostics Result Diagrams: 03/20/23 05:25 03/20/23 05:25 Labs: 03/17/23 12:08 Blood Blood Culture - Preliminary 03/17/23 11:52 Blood Blood Culture - Preliminary 03/17/23 13:05 Sputum - Expectorated Sputum Sputum Culture - Final 03/17/23 13:05 Sputum - Expectorated Sputum - Final Laboratory WBC 11.2 X10^3/uL (3.6-10.0) H 03/20/23 05:25 RBC 3.75 X10^6/uL (3.5-5.4) 03/20/23 05:25 Hgb 11.6 g/dL (12.0-16.0) L 03/20/23 05:25 Hct 34.5 % (36.0-47.0) L 03/20/23 05:25 MCV 92.1 fL (80.0-100.0) 03/20/23 05:25 MCH 31.1 pg (27.0-34.0) 03/20/23 05:25 MCHC 33.7 g/dL (33.0-35.0) 03/20/23 05:25 RDW 14.7 % (11.6-16.5) 03/20/23 05:25 Plt Count 472 X10^3/uL (150.0-450.0) H 03/20/23 05:25 Plt Count Comment Increased (ADEQUATE) A 03/20/23 05:25 MPV 7.1 fL (7.4-11.0) L 03/20/23 05:25 Neut % (Auto) 81.8 % (42.0-75.0) H 03/20/23 05:25 Lymph % (Auto) 10.2 % (21.0-51.0) L 03/20/23 05:25 [place] % (Auto) 7.2 % (0.0-13.0) 03/20/23 05:25 Eos % (Auto) 0.5 % (0.9-2.9) L 03/20/23 05:25 Baso % (Auto) 0.3 % (0.2-1.0) 03/20/23 05:25 Neut # (Auto) 9.2 x10^3/uL (2.2-4.8) H 03/20/23 05:25 Lymph # (Auto) 1.1 X10^3/uL (1.3-2.9) L 03/20/23 05:25 [place] # (Auto) 0.8 x10^3/uL (0.3-0.8) 03/20/23 05:25 Eos # (Auto) 0.1 x10^3/uL (0.0-0.2) 03/20/23 05:25 Baso # (Auto) 0.0 X10^3/uL (0.0-0.1) 03/20/23 05:25 Absolute Nucleated RBC 0.0 /100WBC 03/20/23 05:25 Total Counted 100 03/20/23 05:25 Neutrophils % (Manual) 85 % (39-76) H 03/20/23 05:25 Band Neutrophils % 2 % (0-10) 03/20/23 05:25 Lymphocytes % (Manual) 8 % (13-43) L 03/20/23 05:25 Monocytes % (Manual) 3 % (4-9) L 03/20/23 05:25 Metamyelocytes % 2 03/20/23 05:25 Plt Morphology Comment Normal (NORMAL) 03/20/23 05:25 RBC Morphology Normal (NORMAL) 03/20/23 05:25 Sodium 139 mmol/L (136-145) 03/20/23 05:25 Corrected Sodium TNP 03/20/23 05:25 Potassium 3.4 mmol/L (3.5-5.1) L 03/20/23 05:25 Chloride 102 mmol/L (98-107) 03/20/23 05:25 Carbon Dioxide 30.6 mmol/L (21-32) 03/20/23 05:25 BUN 16 mg/dL (7-18) 03/20/23 05:25 Creatinine 0.80 mg/dL (0.55-1.02) 03/20/23 05:25 Est GFR (MDRD) Af Amer > 60 (>60) 03/20/23 05:25 Est GFR (MDRD) Non-Af > 60 (>60) 03/20/23 05:25 Glucose 99 mg/dL (65-99) 03/20/23 05:25 Calcium 8.5 mg/dL (8.5-10.1) 03/20/23 05:25 Corrected Calcium 9.7 mg/dL (8.5-10.1) 03/20/23 05:25 Magnesium 2.4 mg/dL (2.0-2.9) 03/19/23 05:05 Total Bilirubin 0.20 mg/dL (0.2-1.0) 03/20/23 05:25 AST 19 Units/L (15-37) 03/20/23 05:25 ALT 23 Units/L (12-78) 03/20/23 05:25 Alkaline Phosphatase 74 Units/L (46-116) 03/20/23 05:25 Total Protein 6.2 g/dL (6.4-8.2) L 03/20/23 05:25 Albumin 2.5 g/dL (3.4-5.0) L 03/20/23 05:25 Globulin 3.7 g/dL (2.5-4.5) 03/20/23 05:25 Albumin/Globulin Ratio 0.7 Ratio (1.1-2.1) L 03/20/23 05:25 Resp Viral Panel (PCR) See scanned report 03/17/23 12:15 Plan (1) Pneumonia: Status: Acute Qualifiers: Pneumonia type: due to unspecified organism Laterality: right Lung location: upper lobe of lung Qualified Code(s): J18.9 - Pneumonia, unspecified organism Plan: ADMIT, 1/2NS AT 75 ML/HR, LEVAQUIN 750MG DAILY, FORTAZ 1G IV Q8H, PULMICORT NEBS BID, DUONEBS Q6H, MUCOMYST NEBS Q6H, LOVENOX 40MG SC DAILY, TUSSIONEX 5ML Q12H PRN, ROBITUSSIN DM 10ML QID, ZOFRAN 4MG IV Q6H PRN, SOLU- MEDROL 60MG IV BID, AND THE POTASSIUM AND MAGNESIUM PROTOCOLS. RESUME HOME MEDS (2) HTN (hypertension): Status: Chronic Qualifiers: Hypertension type: primary hypertension Qualified Code(s): I10 - Essential (primary) hypertension (3) GERD (gastroesophageal reflux disease): Status: Chronic Qualifiers: Esophagitis presence: esophagitis presence not specified Qualified Code(s): K21.9 - Gastro-esophageal reflux disease without esophagitis
[2023-03-20] MEDS: ZOFRAN INJ 4 MG VIAL IVP PRN (13:44)
[2023-03-20] MEDS ORDERED: LOMOTIL PO PRN (17:20)
[2023-03-21] MEDS ORDERED: MAALOX or MYLANTA PO PRN (04:20)
[2023-03-21] MEDS ORDERED: MAALOX or MYLANTA ONE (04:22)
[2023-03-21] MEDS: FORTAZ or TAZICEF VIAL INJ 1 G in NS 100 ML IV 100 ML IV SCH (05:10)
[2023-03-21] MEDS: TUSSIONEX PENNKINETIC SUSP PO PRN (05:12)
--- NOTE | 2023-03-21 05:59 | RAD ---
PROCEDURE: Chest X-ray 1 View .HISTORY: Dyspnea and pneumonia.TECHNIQUE: AP view .COMPARISON: 03/20/2023.TECHNICAL QUALITY: Satisfactory .FINDINGS:Normal size heart .Mediastinum and hilar regions show no masses or lymphadenopathy .Normal central vascularity .No pulmonary consolidation, masses, pleural fluid, or pneumothorax .No acute bony abnormality .IMPRESSION:No active cardiopulmonary disease .Electronically signed by: Patricio Schaeffer (March 21, 2023 05:58:45)
[2023-03-21] MEDS: MUCOMYST (RESPIRATORY USE ONLY) NEB SCH ×2 (06:16)
[2023-03-21] MEDS: DUONEB 0.5 MG/3 MG (3 mL) NEB SCH ×2 (06:17)
[2023-03-21 06:40] LABS: ALANINE AMINOTRANSFERASE 28 Units/L (12-78); ALBUMIN 2.7 g/dL (3.4-5.0); ALKALINE PHOSPHATASE 68 Units/L (46-116); ASPARTATE AMINO TRANSFERASE 20 Units/L (15-37); BASOPHILS % (AUTO) 0.2 % (0.2-1.0); BLOOD UREA NITROGEN 16 mg/dL (7-18); CALCIUM 8.9 mg/dL (8.5-10.1); CHLORIDE 100 mmol/L (98-107); COR CA(FOR HYPOALB) 9.9 mg/dL (8.5-10.1); CREATININE 1.01 mg/dL (0.55-1.02); EOSINOPHILS # (AUTO) 0.3 x10^3/uL (0.0-0.2); EOSINOPHILS % (AUTO) 2.4 % (0.9-2.9); GLUCOSE 104 mg/dL (65-99); HEMATOCRIT 38.1 % (36.0-47.0); HEMOGLOBIN 12.9 g/dL (12.0-16.0); LYMPHOCYTES # (AUTO) 1.1 X10^3/uL (1.3-2.9); LYMPHOCYTES % (AUTO) 10.7 % (21.0-51.0); MEAN CORPUSCULAR HEMOGLOBIN 31.8 pg (27.0-34.0); MEAN CORPUSCULAR HGB CONC 33.9 g/dL (33.0-35.0); MEAN CORPUSCULAR VOLUME 93.6 fL (80.0-100.0); MEAN PLATELET VOLUME 7.2 fL (7.4-11.0); MONOCYTES # (AUTO) 0.8 x10^3/uL (0.3-0.8); MONOCYTES % (AUTO) 7.3 % (0.0-13.0); NEUTROPHILS # (AUTO) 8.4 x10^3/uL (2.2-4.8); NEUTROPHILS % (AUTO) 79.4 % (42.0-75.0); PLATELET COUNT 538 X10^3/uL (150.0-450.0); POTASSIUM 3.8 mmol/L (3.5-5.1); RED BLOOD COUNT 4.07 X10^6/uL (3.5-5.4); RED CELL DISTRIBUTION WIDTH 14.6 % (11.6-16.5); SODIUM 138 mmol/L (136-145); TOTAL PROTEIN 6.4 g/dL (6.4-8.2); WHITE BLOOD COUNT 10.6 X10^3/uL (3.6-10.0); eGFR NON BLACK RACES 58 (>60)
[2023-03-21 07:18] LABS: BAND NEUTROPHILS % 6 % (0-10); METAMYELOCYTES % 2; PLATELET MORPHOLOGY COMMENT NORMAL (NORMAL)
[2023-03-21 08:18] VITALS: BP 107/59
[2023-03-21] MEDS: PULMICORT NEB TX 0.5 MG NEB SCH (08:22)
[2023-03-21] MEDS: LEVAQUIN PREMIX IV 750 MG 750 MG/150 ML BAG IV SCH (08:35)
[2023-03-21] MEDS: HYDROCHLOROTHIAZIDE 25 MG TAB PO SCH (08:36)
[2023-03-21] MEDS: FOLIC ACID TAB 1 MG PO SCH (08:36)
[2023-03-21] MEDS: ROBITUSSIN DM PO SCH (08:36)
[2023-03-21] MEDS: K-DUR TAB 20 MEQ PO PRN (08:36)
[2023-03-21] MEDS: PROTONIX TAB 40 MG PO SCH (08:36)
[2023-03-21] MEDS: TOFACITINIB 11 MG PO SCH (08:37)
[2023-03-21] MEDS: DIOVAN TAB 160 MG PO SCH (08:37)
[2023-03-21] MEDS: LOVENOX INJ 40 MG SYR SC SCH (08:37)
== END 2023-03-21 11:30 | disposition home or self-care (01) | DRG 195 ==
LOC: MED/SURG 11:01
PROVIDERS: ADMIT Internal Medicine; ATTEND Internal Medicine
DX: J18.8 Other pneumonia, unspecified organism; K21.9 Gastro-esophageal reflux disease without esophagitis; I10 Essential (primary) hypertension; R06.02 Shortness of breath; Z20.822 Contact with and (suspected) exposure to COVID-19